=== PATIENT | male | born 1990 | race Two or more races ===

== ENCOUNTER 2024-07-20 21:47 | Emergency (ER) | payer MEDICAID, OTHER ==
[~2024-07-20] VITALS: Ht 185.4 cm; Wt 109.0 kg
[2024-07-20 21:47] VITALS: BP 135/86; PULSE 114; RESP 18
--- NOTE | 2024-07-21 01:10 | DVH ---
CLINICAL INFORMATION: 33 years old, Male; right knee pain. TECHNIQUE: 3 views of the right knee were obtained. COMPARISON: None Findings/ IMPRESSION: No acute fracture or dislocation. [id number] narrowing of the lateral tibiofemoral joint compar tment. Small knee joint effusion. No radiopaque foreign objects.
[2024-07-21] MEDS ORDERED: IBUP-1456 PO (01:26)
[2024-07-21] MEDS ORDERED: METH4PAK PO (01:26)
--- NOTE | 2024-07-21 01:26 | ED.PDOC ---
Musculoskeletal HPI Comments 33-year-old male presents to ER with complaints of right knee pain x2 days. Patient reports he has been experiencing pain to right knee x2 days, denying any trauma/injury. He rates his current pain a 10/10 to right knee without radiation. Reports his pain is worse with movement and better with rest. Denies use of medications for current symptoms. Denies fever, numbness/tingling, skin changes or any further symptoms/complaints Chief Complaint: Lower Extremity Time Seen by MD: 22:44 Primary Care Provider: UNKNOWN Reviewed Notes: Nurses Notes, Medications, Allergies Allergies: Coded Allergies: NO KNOWN ALLERGIES (Unverified , 07/20/24) Home Meds Active Scripts Ibuprofen (Ibuprofen) 800 Mg Tab, 1 TAB PO TID PRN, #30 TAB 0 Refills Prov:YULISSA STAPLES 07/21/24 Methylprednisolone (Medrol Dosepak) 4 Mg Manuelito, 4 MG PO UD, #21 TAB 0 Refills UAD Prov:YULISSA STAPLES 07/21/24 Information Source: Patient Mode of Arrival: Ambulatory Past Medical History PAST MEDICAL HISTORY: Gout Surgical History: Denies all surgeries Family History Family History: Unknown Social History Smoker: Non-Smoker Alcohol: Denies ETOH Use Drugs: Denies Drug Use Lives In: Home Constitutional: denies: chills, diaphoresis, fatigue, fever, malaise, sweats, weakness, others EENTM: denies: blurred vision, double vision, ear bleeding, ear discharge, ear drainage, ear pain, ear ringing, eye pain, eye redness, hearing loss, mouth pain, mouth swelling, nasal discharge, nose bleeding, nose congestion, nose pain, photophobia, tearing, throat pain, throat swelling, voice changes, others Respiratory: denies: cough, hemoptysis, orthopnea, SOB at rest, shortness of b reath, SOB with excertion, stridor, wheezing, others Cardiovascular: denies: chest pain, dizzy spells, diaphoresis, Dyspnea on exertion, edema, irregular heart beat, left arm pain, lightheadedness, palpitations, PND, syncope, others Gastrointestinal: denies: abdomen distended, abdominal pain, blood streaked bowels, constipated, diarrhea, dysphagia, difficulty swallowing, hematemesis, melena, nausea, poor appetite, poor fluid intake, rectal bleeding, rectal pain, vomiting, others Genitourinary: denies: burning, dysuria, flank pain, frequency, hematuria, incontinence, penile discharge, penile sore, pain, testicle pain, testicle swelling, urgency, others Neurological: denies: dizziness, fainting, headache, left sided numbness, left sided weakness, numbness, paresthesia, pre-existing deficit, right sided numbness, right sided weakness, seizure, speech problems, tingling, tremors, weakness, others Musculoskeletal: reports: others (As stated in HPI) Integumetry: denies: bruises, change in color, change in hair/nails, dryness, laceration, lesions, lumps, rash, wounds, others Allergic/Immunocompromised: denies: Difficulty Healing, Frequent Infections, Hives, Itching, others Hematologic/Lymphatic: denies: anemia, blood clots, easy bleeding, easy bruising, swollen glands, others Endocrine: denies: excessive hunger, excessive sweating, excessive thirst, excessive urination, flushing, intolerance to cold, intolerance to heat, unexpla ined weight gain, unexplained weight loss, others Psychiatric: denies: anxiety, bipolar disorder, depression, hopeless, panic disorder, schizophrenia, sleepless, suicidal, others Physical Exam General Appearance: No Apparent Distress, Obese HEENT: PERRL/EOMI Neck: Full Range of Motion, Non-Tender, Normal Respiratory: Chest Non-Tender, Lungs Clear, No Accessory Muscle Use, No Respiratory Distress, Normal Breath Sounds Cardiovascular: No Murmur, No Gallop, Regular Rate/Rhythm Breast Exam: Deferred Gastrointestinal: NOT DONE Genitalia: Deferred Pelvic: Deferred Rectal: Deferred Extremities: Normal capillary refill, Normal range of motion Musculoskeletal : Extremity Location: Knee (TTP/mild swelling noted to right anterior knee. Positive anterior drawer test right knee. Negative Kecia's test right knee. No further skin changes noted. Gait slowed due to pain localized to right anterior knee) Neurologic: Alert, No Motor Deficits, Normal Affect, Normal Mood, No Sensory Deficits Cerebellar Function: Normal Reflexes: Normal Skin: Dry, Normal Color, Warm Peripheral Pulses: 2+ femoral (R), 2+ femoral (L), 2+ dorsalis pedis (R), 2+ dorsalis pedis (L), 2+ Radial (R), 2+ Radial (L), 2+ Brachial (R), 2+ Brachial (L) Lymphatic: No Adenopathy Was a procedure done? Was a procedure done?: No Sedation Sedation?: No Differential Diagnosis EXT Differential Diagnosis: Fracture, Dislocation, Neurovascular injury X-Ray, Labs, Meds, VS Vital Signs Date Time Temp Pulse Resp B/P (MAP) Pulse Ox O2 Delivery O2 Flow Rate FiO2 07/20/24 21:47 97.8 114 18 135/86 102 97 PATIENT: GARCÍA CHANEY ACCT: [id number] UNIT: [id number] : 1990 LOC: ER ROOM / BED: / AGE / SEX: 33 / M ADM STATUS: REG ER SERVICE ORDERING PHYSICIAN: YULISSA STAPLES PROCEDURE(s): RKN3 - R KNEE 3V XRAY REASON: right knee pain ORDER NUMBER(s): [id number], ACCESSION NUMBER(s): [id number] CLINICAL INFORMATION: 33 years old, Male; right knee pain. TECHNIQUE: 3 views of the right knee were obtained. COMPARISON: None Findings/ IMPRESSION: No acute fracture or dislocation. [id number] narrowing of the lateral tibiofemoral joint compartment. Small knee joint effusion. No radiopaque foreign objects. ATED BY: PAM STARR DO DICTATED DATE/TIME: 07/21/24106 SIGNED BY: PAM STARR DO SIGNED DATE/TIME: 07/21/24106 CC: Right knee x-ray reviewed Right knee immobilizer applied Patient refused crutches Toradol 60 mg IM ordered Patient neurovascularly intact and reported improvement in symptoms prior to discharge Advised on rest/no strenuous activity, elevation and alternate ice on/off as needed for pain/swelling Advised to follow up with PCP and orthopedics in 1-2 days Patient verbalized understanding and agreeable with current plan of care Advised to return to ER immediately if symptoms worsen Images Reviewed?: Images reviewed and evaluated by me Time of 1ST Reevaluation: 01:02 Reevaluation 1ST: N/A Patient Education/Counseling: Diagnosis, Treatment, Prognosis, Need For Follow Up Family Education/Counseling: No Family Present Departure 1 Departure Time of Disposition: 01:22 Impression: Primary Impression: Right knee sprain Qualified Codes: S83.91XA - Sprain of unspecified site of right knee, initial encounter Disposition: HOME / SELF CARE / HOMELESS Condition: Stable e-Prescriptions Ibuprofen (Ibuprofen) 800 Mg Tab 1 TAB PO TID PRN, #30 TAB 0 Refills Prov: YULISSA STAPLES 07/21/24 Methylprednisolone (Medrol Dosepak) 4 Mg Manuelito 4 MG PO UD, #21 TAB 0 Refills UAD Prov: YULISSA STAPLES 07/21/24 Discharged With: Friend Critical Care Note Critical Care Time?: No Stability Stability form required: No Heart Score Heart Score: Heart Score Response (Comments) Value History N/A 0 EKG N/A 0 Age N/A 0 Risk Factors N/A 0 Troponin N/A 0 Total 0 YULISSA STAPLES Jul 21, 2024 01:26
[2024-07-21] MEDS: KETOROLAC TROMETH 60MG/2ML VIAL IM ONE (02:09)
[2024-07-21 02:14] VITALS: O2SAT 99
== END 2024-07-21 02:33 | disposition home or self-care (01) ==
LOC: ER 21:47
DX: S83.91XA Sprain of unspecified site of right knee, initial encounter (principal); M10.9 Gout, unspecified; Z79.899 Other long term (current) drug therapy; X58.XXXA Exposure to other specified factors, initial encounter; Y93.89 Activity, other specified; Y92.89 Other specified places as the place of occurrence of the external cause; Y99.8 Other external cause status
CPT/HCPCS: 29505; 73562; 96372; 99283; J1885